=== PATIENT | male | born 1975 | race Caucasian/White ===

== ENCOUNTER → 2024-11-06 | Outpatient (CLI) | payer OTHER, SELFPAY ==
--- NOTE | 2024-11-06 09:08 | US_ITS ---
PROCEDURE: ELASTOGRAPHY PARENCHYMA/ORGAN 11/06/2024 REASON FOR EXAM: ABN LIVER FX TESTS TECHNIQUE: ELASTOGRAPHY PARENCHYMA/ORGAN COMPARISON: None FINDINGS: kPa: 13.3. Velocity: 2.1 m/sec. Metavir score: F3/F4 US/Elastography Parenchyma/Organ IMPRESSION: Marked hepatic fibrosis. Reading Location: [id number]
== END | disposition home or self-care (01) ==
LOC: US 09:05
PROVIDERS: PCP Nurse Practitioner Adult Health; Referring Provider Nurse Practitioner Adult Health; Visit Provider Nurse Practitioner Adult Health
DX: R94.5 Abnormal results of liver function studies (principal)
CPT/HCPCS: 76981